=== PATIENT | male | born 1970 | race Asian ===

== ENCOUNTER 2019-02-19 05:56 | Day surgery (SDC) | payer BC ==
[~2019-02-19 05:56] MED LIST: ceFAZolin/Water 2 GM/20 ML 2 GM/20 ML SYRINGE IV NR
[2019-02-19] MEDS ORDERED: BACTERIOSTATIC SODIUM CHLORIDE 0.9% 30 ML VIAL INFILTRATI ONE (06:28)
[2019-02-19] MEDS ORDERED: LACTATED RINGERS 1,000 ML ONE ×2 (06:28→08:40)
[2019-02-19] MEDS ORDERED: fentaNYL 100 MCG/2 ML INJ IV PRN (07:07)
[2019-02-19] MEDS ORDERED: ONDANSETRON 4 MG/2 ML INJ IV PRN (07:07)
--- NOTE | 2019-02-19 07:09 | Anesthesia Day of Surgery ---
Anesthesia Day of Surgery - Day of Surgery Patient Examined: Yes Patient H&P Reviewed: Yes Patient is NPO: Yes
[2019-02-19] MEDS ORDERED: BUPIVACAINE-EPINEPHRINE/PF 0.5%-1:200,000 (30 ML) VIAL INFILTRATI ONE ×2 (07:10→07:55)
--- NOTE | 2019-02-19 07:13 | Anesthesia Consultation ---
Anesthesia Consult and Med Hx Date of service: 02/19/19 - Airway Anesthetic Teeth Evaluation: Good ROM Head & Neck: Adequate Mental/Hyoid Distance: Adequate Mallampati Class: Class II Intubation Access Assessment: Good - Pre-Operative Health Status ASA Pre-Surgery Classification: ASA2 Proposed Anesthetic Plan: General - Pulmonary Hx Sleep Apnea: (LOW RISK) - Central Nervous System Hx Psychiatric Problems: No - Gastrointestinal Hx Gastroesophageal Reflux Disease: No (Hiatal Hernia-asymptomatic) - Other Systems Hx Alcohol Use: Yes Hx Substance Use: No Hx Obesity: Yes
[2019-02-19] MEDS ORDERED: PROPOFOL 200 MG/20 ML VIAL IV ONE (07:27)
[2019-02-19] MEDS ORDERED: LIDOCAINE PF 100 MG/5 ML (CARDIAC SYRINGE) IV ONE (07:27)
[2019-02-19] MEDS ORDERED: HYDROmorphone 1 MG/1 ML INJ ONE ×2 (07:27→08:00)
[2019-02-19] MEDS ORDERED: ONDANSETRON 4 MG/2 ML INJ ONE (07:47)
[2019-02-19] MEDS ORDERED: dexAMETHasone 20 MG/5 ML VIAL ONE (07:47)
[2019-02-19] MEDS ORDERED: SODIUM CHLORIDE 0.9% IRR 1,000 ML BOTTLE IR ONE (07:55)
[2019-02-19] MEDS ORDERED: LACTATED RINGERS 1,000 ML IV SCH (08:00)
[2019-02-19] MEDS ORDERED: ROCURONIUM 50 MG/5 ML INJ IV ONE (08:20)
[2019-02-19] MEDS ORDERED: GLYCOPYRROLATE 0.4 MG/2 ML INJ ONE (08:45)
[2019-02-19] MEDS ORDERED: NEOSTIGMINE 10MG/10 ML INJ MDV ONE (08:45)
--- NOTE | 2019-02-19 08:50 | Discharge Summary ---
Short Stay Discharge Plan Activity: other (observe x 4 hrs then july d/c if stable and able to void. ice pack L groin x 6 hrs. scrotal support x 3 days. no lifting over 5 lbs x 3 wks. keep dressings dry x 5 days) Diet: other (cl liq diet advance to solid high fiber diet this pm as tony) Wound: keep clean and dry Additional Instructions: aleve I po q 6-8 hrs prn for breakthrough pain. surfak I po q am x 3 Follow up with: NELL NAIDU MD [Staff Physician] - 03/01/19
--- NOTE | 2019-02-19 09:06 | Operative Report ---
PREOPERATIVE DIAGNOSIS: Left inguinal hernia. POSTOPERATIVE DIAGNOSES: 1. Large direct left inguinal hernia. 2. Large lipoma of cord. PROCEDURE: 1. Open left inguinal hernia repair with mesh. 2. Removal of lipoma of cord. SURGEON: Grant Malone MD ANESTHESIA: General. ESTIMATED BLOOD LOSS: Minimal. DRAINS: None. COMPLICATIONS: None. DESCRIPTION OF PROCEDURE: The patient was taken to the operating room, prepped and draped in usual sterile fashion. Incision was made using his landmarks anterior superior iliac spine and the pubic tubercle. Incision was carried down to the external oblique fascia. External oblique fascia was transected down to the external inguinal ring. Cord was then identified and isolated with a [place] drain at the level of pubic tubercle. Inspection of the cord revealed a large lipoma, but no indirect sac. Palpation of the floor revealed the floor to be completely obliterated with large direct hernia. The lipoma of the cord was removed and secured with a 0 Vicryl stick tie. The lipoma was sent as specimen. A preshaped keyhole Marlex mesh was then used to reconstruct the inguinal canal floor. The mesh was tacked inferiorly to the area of the pubic tubercle. Medially, the mesh was secured to the transversalis fascia and laterally to the iliopubic tract. The area was then irrigated copiously and dried. Checked for hemostasis and noted to be dry. Cord structures were once again inspected and noted to be intact. The cord was then on laid over the mesh. The external oblique fascia was closed over the cord with running 3-0 Vicryl suture. Subcutaneous tissues irrigated and skin closed with rich. A 0.5% Marcaine was then infiltrated over the fascia, subcutaneous, and skin for postoperative pain relief. Ilioinguinal nerve block was also performed. The patient tolerated the procedure well and left the OR in stable condition. JOB# [id number] AGUSTO/FRANDY
[2019-02-19] MEDS ORDERED: KETOROLAC 30 MG/1 ML INJ IV PRN (09:37)
[2019-02-19] MEDS ORDERED: HYDROcodone/ACETAMINOPHEN 5-325 MG TAB PO PRN (09:39)
[2019-02-19 09:47] VITALS: BP 130/69
--- NOTE | 2019-02-19 11:10 | Post Anesthesia Evaluation ---
- Post Anesthesia Evaluation Patient Participated: Yes Airway Patent: Yes Stable Respiratory Function: Yes Nausea/Vomiting: No Temp > 96.8F: Yes Pain Manageable: Yes Adequeate Hydration: Yes Anesthesia Complications: No Block Receding Appropriately: Not Applicable Patient on Ventilator: No
== END 2019-02-19 05:57 | disposition home or self-care (01) ==
LOC: OR 05:56
PROVIDERS: ATTEND Surgery
DX: K40.90 Unilateral inguinal hernia, without obstruction or gangrene, not specified as recurrent (principal); D17.6 Benign lipomatous neoplasm of spermatic cord; G47.30 Sleep apnea, unspecified; K21.9 Gastro-esophageal reflux disease without esophagitis; E66.9 Obesity, unspecified; Z68.34 Body mass index [BMI] 34.0-34.9, adult; Z72.89 Other problems related to lifestyle; Z79.899 Other long term (current) drug therapy; Z90.49 Acquired absence of other specified parts of digestive tract; Z98.890 Other specified postprocedural states; Z80.1 Family history of malignant neoplasm of trachea, bronchus and lung; Z80.8 Family history of malignant neoplasm of other organs or systems
CPT/HCPCS: 49505; 88304; C1781; J0690; J1100; J1170; J1885; J2001; J2405; J2704; J2710; J7120